=== PATIENT | female | born 1970 | race Caucasian/White ===

== ENCOUNTER → 2020-10-03 08:22 | Outpatient (CLI) | payer OTHER, SELFPAY ==
--- NOTE | 2020-10-03 08:25 | DI.RAD.S_ITS ---
PROCEDURE: XR HIP W PEL IF DONE RT 2V INDICATIONS: right hamstring tear TECHNIQUE: AP pelvis with lateral view(s) of the right hip(s). COMPARISON: None. FINDINGS: Bones: No fractures or dislocations. Pelvic ring appears intact. No suspicious bony lesions. Soft tissues: The visualized bowel gas pattern is normal. No suspicious soft tissue calcifications. Intrauterine device is seen. IMPRESSION: No right hip fracture or dislocation. No evidence of avascular necrosis of femoral head. Dictated by: Manish Holly M.D. on 10/03/2020 at 8:25 Approved by: Manish Holly M.D. on 10/03/2020 at 8:27
== END ==
PROVIDERS: PCP Physician Assistant Medical; Referring Provider Physical Medicine & Rehabilitation; Visit Provider Physical Medicine & Rehabilitation
DX: S76.311A Strain of muscle, fascia and tendon of the posterior muscle group at thigh level, right thigh, initial encounter (principal); M25.551 Pain in right hip; X58.XXXA Exposure to other specified factors, initial encounter; M23.200 Derangement of unspecified lateral meniscus due to old tear or injury, right knee
CPT/HCPCS: 20611; 73502

== ENCOUNTER → 2020-11-10 16:14 | Outpatient (CLI) | payer OTHER, SELFPAY ==
--- NOTE | 2020-11-10 16:16 | DI.RAD.S_ITS ---
PROCEDURE: XR HAND RT 2V INDICATIONS: Hand swelling and pain TECHNIQUE: 2 views of the hand(s) acquired. COMPARISON: [facility], CR, XR HAND LT 2V, 11/10/2020, 17:13. FINDINGS: Bones: No fractures or dislocations. Carpal bones are normally aligned. No suspicious bony lesions. Osteoarthritic degenerative changes are seen, which are most prominent involving the 1st carpometacarpal joint, where there is prominent joint space narrowing with associated subchondral sclerosis and fragmented osteophytes. Milder degenerative changes are seen elsewhere. Soft tissues: No suspicious soft tissue calcifications. IMPRESSION: Degenerative changes are seen, which are most prominent involving the 1st carpometacarpal joint. Dictated by: Kalyan Banks M.D. on 11/10/2020 at 15:45 Approved by: Kalyan Banks M.D. on 11/10/2020 at 15:45
--- NOTE | 2020-11-10 16:16 | DI.RAD.S_ITS ---
PROCEDURE: XR HAND LT 2V INDICATIONS: Hand swelling and pain TECHNIQUE: 2 views of the hand(s) acquired. COMPARISON: [facility], CR, XR HAND RT 2V, 11/10/2020, 17:15. FINDINGS: Bones: No fractures or dislocations. Carpal bones are normally aligned. No suspicious bony lesions. Degenerative changes are seen throughout, which are most prominent involving the 1st carpometacarpal joint. Milder degenerative changes are seen elsewhere. Soft tissues: No suspicious soft tissue calcifications. IMPRESSION: Osteoarthritic degenerative changes are seen, which are worst involving the 1st carpometacarpal joint. Dictated by: Kalyan Banks M.D. on 11/10/2020 at 15:44 Approved by: Kalyan Banks M.D. on 11/10/2020 at 15:45
== END ==
PROVIDERS: PCP Physician Assistant; Referring Provider Physical Medicine & Rehabilitation; Visit Provider Physical Medicine & Rehabilitation
DX: M79.89 Other specified soft tissue disorders (principal); M79.641 Pain in right hand; M79.642 Pain in left hand
CPT/HCPCS: 73120

== ENCOUNTER → 2021-05-22 13:05 | Outpatient (CLI) | payer OTHER, SELFPAY ==
[2021-05-22 13:24] LABS: COVID19 -Nasal RAPID POSITIVE (Negative)
== END ==
PROVIDERS: PCP Physician Assistant; Visit Provider Physician Assistant
DX: U07.1 COVID-19 (principal)
CPT/HCPCS: 87635